=== PATIENT | female | born 1995 | race Caucasian/White ===

== ENCOUNTER 2019-09-18 16:56 | Emergency (ER) | payer OTHER ==
[2019-09-18 17:06] VITALS: BP 106/65; PULSE 72
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
--- NOTE | 2019-09-18 18:23 | CR ---
Right wrist: 4 views of the right wrist were obtained. Joint spaces are preserved. No discrete fracture or other bony abnormality is appreciated. Impression: 1. No abnormality is appreciated on right wrist exam. Diagnostic code #1 Study was dictated in [place] Standard Time
== END 2019-09-18 18:18 | disposition home or self-care (01) ==
LOC: JD.ED 16:56
DX: S60.811A Abrasion of right wrist, initial encounter (principal); F41.9 Anxiety disorder, unspecified; F32.9 Major depressive disorder, single episode, unspecified; F17.210 Nicotine dependence, cigarettes, uncomplicated; Z98.890 Other specified postprocedural states; Z88.0 Allergy status to penicillin; Z79.899 Other long term (current) drug therapy; Y04.0XXA Assault by unarmed brawl or fight, initial encounter
CPT/HCPCS: 73110-26-RT; 73110-RT; 99283-25